=== PATIENT | female | born 1965 | race African-American/Black ===

== ENCOUNTER 2019-11-28 02:36 | Emergency (ER) | payer SELFPAY ==
[2019-11-28] MEDS ORDERED: Bacitracin 1 PK ONE (03:29)
[2019-11-28] MEDS ORDERED: Lidocaine Viscous Sol 2% 15 ml UD Cup ONE (03:29)
== END 2019-11-28 05:39 | disposition home or self-care (01) ==
LOC: ERS 02:36
DX: R04.0 Epistaxis (principal); I10 Essential (primary) hypertension; I25.2 Old myocardial infarction; I25.10 Atherosclerotic heart disease of native coronary artery without angina pectoris; Z79.82 Long term (current) use of aspirin; Z79.899 Other long term (current) drug therapy
CPT/HCPCS: 99283